=== PATIENT | male | born 1975 | race Caucasian/White ===

== ENCOUNTER 2019-07-14 21:49 | Inpatient (IN) ==
[2019-07-14 22:48] LABS: Bilirubin,Urine Negative (Negative); Blood,Urine Negative (Negative); Clarity,Urine Clear (Clear); Color,Urine Yellow (Yellow); Glucose,Urine (UA) Normal (Normal); Ketones,Urine Negative (Negative); Leukocyte Esterase,Urine Negative (Negative); Nitrite,Urine Negative (Negative); Protein,Urine 30 mg/dL (Neg-Trace); Specific Gravity,Urine 1.015 (1.010-1.025); Urobilinogen,Urine Normal (Normal)
[2019-07-14 22:52] LABS: Bacteria,Urine None Seen per hpf (None-Few); Hyaline Casts,Urine None Seen per lpf (None-Few); RBC,Urine 0-3 per hpf (0-3); Squamous Epithelial Cell,Urine None Seen per lpf (None-Few); WBC,Urine 0-3 per hpf (0-3)
[2019-07-14 22:57] LABS: Amphetamine Screen,Urine Negative ng/mL (Cutoff=1000); Barbiturate Screen,Urine Negative ng/mL (Cutoff=200); Benzodiazepines Screen,Urine Negative ng/mL (Cutoff=200); Cannabinoid Screen,Urine Negative ng/mL (Cutoff = 50); Cocaine Screen,Urine Negative ng/mL (Cutoff= 300); Opiate Screen,Urine Negative ng/mL (Cutoff=300); Phencyclidine Screen,Urine Negative ng/mL (Cutoff=25)
[2019-07-14 23:56] LABS: Basophils # 0.1 K/mcL (0.0-0.2); Basophils % 0.9 %; Eosinophils # 0.3 K/mcL (0.0-0.6); Eosinophils % 2.8 %; Hematocrit 49.3 % (37.5-50.1); Hemoglobin 16.7 g/dL (12.9-16.9); Immature Granulocytes % 0.3 % (0-4); Lymphocytes # 3.4 K/mcL (0.6-4.6); Lymphocytes % 33.2 %; Mean Corpuscular HGB Conc 33.9 g/dL (31.6-35.5); Mean Corpuscular Volume 88.5 fL (83.0-100.0); Mean Platelet Volume 10.7 fL (9.4-12.4); Monocytes # 0.8 K/mcL (0.0-1.3); Monocytes % 7.6 %; Neutrophils # 5.7 K/mcL (1.6-8.9); Platelet Count 245 K/mcL (140-400); Red Blood Count 5.57 M/mcL (4.19-5.50); Red Cell Distribution Width 13.6 % (11.5-14.5); Segmented Neutrophils % 55.2 %; White Blood Count 10.3 K/mcL (4.3-11.1)
[2019-07-15 00:12] LABS: BUN/Creatinine Ratio 10 (6-26); Blood Urea Nitrogen 13 mg/dL (6-20); Carbon Dioxide 26 mEq/L (23-29); Chloride 105 mEq/L (98-107); Creatine Kinase 129 Units/L (30-223); Glucose 94 mg/dL (70-105); Osmolality,Calculated 292 (280-300); Phosphorous 3.7 mg/dL (2.7-4.5); Potassium 3.4 mEq/L (3.5-5.1); Sodium 141 mEq/L (136-145); Troponin I < 0.03 ng/mL (< 0.04); eGFR For African Americans > 60 (> 60); eGFR For Non-African Americans 58 (> 60)
[2019-07-15 00:16] LABS: Acetaminophen < 10 mcg/mL (10-20); Ethanol < 10 mg/dL (Less than 10)
[2019-07-15 00:26] LABS: VBG Ionized Calcium 1.06 mmol/L (1.15-1.35)
[2019-07-15 00:26] LABS: Thyroid Stimulating Hormone 23.582 mcIU/mL (0.340-5.600)
[2019-07-15] MEDS ORDERED: 0.9 % Sodium Chloride 1,000 ML IVC ONE (00:35)
[2019-07-15 01:23] LABS: Triiodothyronine (T3) Free 3.45 pg/mL (2.50-3.90)
[2019-07-15] MEDS: niCARdipine 20 MG/200 ML MLS IVC SCH ×3 (01:24→06:37)
[2019-07-15 01:27] LABS: Triiodothyronine (T3) Total 1.11 ng/mL (0.87-1.78)
[2019-07-15] MEDS ORDERED: Naloxone 0.4 MG/ML INJ IVP PRN (01:44)
[2019-07-15 04:01] LABS: Hematocrit 51.8 % (37.5-50.1); Hemoglobin 17.4 g/dL (12.9-16.9); Mean Corpuscular HGB Conc 33.6 g/dL (31.6-35.5); Mean Corpuscular Hemoglobin 30.4 pg (28.0-33.3); Mean Corpuscular Volume 90.6 fL (83.0-100.0); Mean Platelet Volume 10.8 fL (9.4-12.4); Platelet Count 220 K/mcL (140-400); Red Blood Count 5.72 M/mcL (4.19-5.50); Red Cell Distribution Width 13.7 % (11.5-14.5); White Blood Count 10.5 K/mcL (4.3-11.1)
[2019-07-15 04:22] LABS: Alanine Aminotransferase 19 Units/L (7-52); Albumin 4.3 g/dL (3.5-5.7); Albumin/Globulin Ratio 1.6 (1.1-2.2); Alkaline Phosphatase 81 Units/L (34-104); Aspartate Amino Transferase 17 Units/L (13-39); BUN/Creatinine Ratio 10 (6-26); Bilirubin,Direct 0.1 mg/dL (0.0-0.2); Bilirubin,Indirect 0.6 mg/dL (0.0-1.0); Bilirubin,Total 0.7 mg/dL (0.3-1.0); Blood Urea Nitrogen 12 mg/dL (6-20); Calcium 8.9 mg/dL (8.6-10.3); Carbon Dioxide 26 mEq/L (23-29); Chloride 107 mEq/L (98-107); Globulin 2.7 g/dL (2.4-3.5); Glucose 139 mg/dL (70-105); Osmolality,Calculated 296 (280-300); Phosphorous 3.1 mg/dL (2.7-4.5); Potassium 3.1 mEq/L (3.5-5.1); Sodium 142 mEq/L (136-145); eGFR For African Americans > 60 (> 60); eGFR For Non-African Americans > 60 (> 60)
[2019-07-15] MEDS: cloNIDine HCl 0.1 MG TABLET PO SCH ×4 (05:53→20:25)
[2019-07-15] MEDS: *HR* Heparin 5,000 UNIT/ML VIAL SQ SCH ×2 (05:56→16:29)
[2019-07-15] MEDS ORDERED: Levothyroxine 25 MCG TABLET PO SCH (06:30)
[2019-07-15] MEDS ORDERED: hydrALAZINE 10 MG TABLET PO PRN (08:43)
[2019-07-15] MEDS ORDERED: amLODIPine 5 MG TABLET PO ONE (08:46)
[2019-07-15] MEDS ORDERED: amLODIPine 5 MG TABLET PO SCH (09:00)
[2019-07-15] MEDS: Metoprolol XL (24 HR) Succ 50 MG TAB.ER.24H PO SCH (09:06)
[2019-07-15 18:56] LABS: Amphetamine Screen,Urine Negative ng/mL (Cutoff=1000); Barbiturate Screen,Urine Negative ng/mL (Cutoff=200); Benzodiazepines Screen,Urine Negative ng/mL (Cutoff=200); Cannabinoid Screen,Urine Negative ng/mL (Cutoff = 50); Cocaine Screen,Urine Negative ng/mL (Cutoff= 300); Opiate Screen,Urine Negative ng/mL (Cutoff=300); Phencyclidine Screen,Urine Negative ng/mL (Cutoff=25)
[2019-07-16] MEDS ORDERED: Aspirin 325 MG TABLET PO ONE (00:06)
[2019-07-16] MEDS ORDERED: Melatonin 3 MG TABLET PO PRN (00:22)
[2019-07-16 02:00] LABS: Mean Corpuscular HGB Conc 33.7 g/dL (31.6-35.5); Mean Corpuscular Hemoglobin 30.1 pg (28.0-33.3); Mean Corpuscular Volume 89.2 fL (83.0-100.0); Platelet Count 381 K/mcL (140-400); Red Blood Count 6.32 M/mcL (4.19-5.50); Red Cell Distribution Width 14.3 % (11.5-14.5)
[2019-07-16 02:04] LABS: Calcium 9.9 mg/dL (8.6-10.3); Chol/HDL Ratio 6.9 (0-4.9); Potassium 4.3 mEq/L (3.5-5.1)
[2019-07-16 02:29] LABS: White Blood Count 16.2 K/mcL (4.3-11.1)
[2019-07-16 02:30] LABS: Hematocrit 56.4 % (37.5-50.1)
[2019-07-16] MEDS: *HR* Heparin 5,000 UNIT/ML VIAL SQ SCH ×2 (06:28→17:59)
[2019-07-16] MEDS ORDERED: amLODIPine 5 MG TABLET PO SCH ×3 (09:00)
[2019-07-16 09:11] LABS: Basophils # 0.1 K/mcL (0.0-0.2); Basophils % 0.7 %; Eosinophils # 0.2 K/mcL (0.0-0.6); Eosinophils % 1.9 %; Hematocrit 52.7 % (37.5-50.1); Immature Granulocytes % 0.2 % (0-4); Lymphocytes # 3.3 K/mcL (0.6-4.6); Lymphocytes % 27.3 %; Mean Corpuscular HGB Conc 34.2 g/dL (31.6-35.5); Mean Corpuscular Hemoglobin 30.6 pg (28.0-33.3); Mean Corpuscular Volume 89.5 fL (83.0-100.0); Mean Platelet Volume 10.7 fL (9.4-12.4); Monocytes # 1.1 K/mcL (0.0-1.3); Monocytes % 9.1 %; Neutrophils # 7.3 K/mcL (1.6-8.9); Platelet Count 302 K/mcL (140-400); Red Blood Count 5.89 M/mcL (4.19-5.50); Red Cell Distribution Width 14.2 % (11.5-14.5); Segmented Neutrophils % 60.8 %; White Blood Count 12.1 K/mcL (4.3-11.1)
[2019-07-16] MEDS: 0.9 % Sodium Chloride 1,000 ML IVC SCH ×2 (09:36→23:50)
[2019-07-16] MEDS: Metoprolol XL (24 HR) Succ 50 MG TAB.ER.24H PO SCH (09:36)
[2019-07-16] MEDS: cloNIDine HCl 0.1 MG TABLET PO SCH ×2 (09:36→19:46)
[2019-07-16 10:17] LABS: Estimated Average Glucose 126 mg/dl
[2019-07-16 16:10] LABS: Bilirubin,Urine Small (Negative); Blood,Urine Negative (Negative); Clarity,Urine Clear (Clear); Color,Urine Dark Yellow (Yellow); Glucose,Urine (UA) Normal (Normal); Ketones,Urine Trace mg/dL (Negative); Leukocyte Esterase,Urine Negative (Negative); Nitrite,Urine Negative (Negative); Protein,Urine 100 mg/dL (Neg-Trace); Specific Gravity,Urine 1.026 (1.010-1.025); Urobilinogen,Urine Normal (Normal)
[2019-07-16 16:13] LABS: Bacteria,Urine None Seen per hpf (None-Few)
[2019-07-16 16:42] LABS: Granular Casts,Urine Few per lpf (None Seen); Hyaline Casts,Urine Many per lpf (None-Few); Waxy Casts,Urine Few per lpf (None Seen)
[2019-07-16 16:43] LABS: Squamous Epithelial Cell,Urine Few per lpf (None-Few)
[2019-07-16 16:44] LABS: RBC,Urine 0-3 per hpf (0-3)
[2019-07-16 17:59] LABS: Sodium, Urine 30.1 mEq/L
[2019-07-17] MEDS: *HR* Heparin 5,000 UNIT/ML VIAL SQ SCH (05:29)
[2019-07-17 07:28] LABS: Hematocrit 44.4 % (37.5-50.1); Hemoglobin 14.5 g/dL (12.9-16.9); Mean Corpuscular HGB Conc 32.7 g/dL (31.6-35.5); Mean Corpuscular Hemoglobin 30.5 pg (28.0-33.3); Mean Corpuscular Volume 93.5 fL (83.0-100.0); Mean Platelet Volume 11.3 fL (9.4-12.4); Platelet Count 225 K/mcL (140-400); Red Blood Count 4.75 M/mcL (4.19-5.50); Red Cell Distribution Width 13.8 % (11.5-14.5)
[2019-07-17 07:43] VITALS: BP 167/90
[2019-07-17 07:50] LABS: Calcium 8.6 mg/dL (8.6-10.3); Potassium 3.7 mEq/L (3.5-5.1)
[2019-07-17] MEDS ORDERED: Aspirin 81 MG TAB.CHEW PO SCH (09:00)
[2019-07-17] MEDS ORDERED: amLODIPine 5 MG TABLET PO SCH (09:00)
[2019-07-17] MEDS: Metoprolol XL (24 HR) Succ 50 MG TAB.ER.24H PO SCH (09:09)
[2019-07-17] MEDS: cloNIDine HCl 0.1 MG TABLET PO SCH (09:10)
[2019-07-17] MEDS ORDERED: Isovue-370 500 ML BOTTLE IVP ONE (10:41)
== END 2019-07-17 10:37 | disposition home or self-care (01) | DRG 64 ==
LOC: EMEROOARM 21:49 → 2NNU 21:49 → SUATTDRO 07-15 01:34 → 2NNU 07-15 02:20 → 3BNU 07-16 16:46
PROVIDERS: ADMIT Internal Medicine; ATTEND Family Medicine